=== PATIENT | male | born 1950 | race Two or more races ===

== ENCOUNTER 2016-07-27 17:07 | Emergency (ER) | payer BC, OTHER ==
[~2016-07-27] VITALS: Ht 182.9 cm; Wt 81.6 kg
[2016-07-27 17:10] VITALS: BP 160/70
== END 2016-07-27 18:03 | disposition home or self-care (01) ==
LOC: EDUNIT# 17:07 → ER 17:20
DX: S40.012A Contusion of left shoulder, initial encounter (principal); S20.212A Contusion of left front wall of thorax, initial encounter; V49.9XXA Car occupant (driver) (passenger) injured in unspecified traffic accident, initial encounter; Y93.89 Activity, other specified; Y99.8 Other external cause status; Y92.69 Other specified industrial and construction area as the place of occurrence of the external cause
CPT/HCPCS: 29105; 73000; 73030

== ENCOUNTER 2017-08-01 05:37 | Inpatient (IN) | payer BC, OTHER, MEDICARE ==
[~2017-08-01] VITALS: Ht 180.3 cm; Wt 81.5 kg
[2017-08-01 06:40] LABS: Basophils # (auto) 0 uL; Eosinophils # (auto) 0 uL; Eosinophils % (auto) 0.9 % (0.0-7.0); Hematocrit 39.2 % (41.0-53.0); Hemoglobin 13.5 g/dL (13.5-17.5); Lymphocytes # (auto) 1.3 uL; Lymphocytes % (auto) 37.3 % (10.0-50.0); Mean Corpuscular Hemoglobin 29.5 pg (28.0-32.0); Mean Corpuscular Hgb Conc. 34.6 g/dL (32.0-36.0); Mean Corpuscular Volume 85.3 fL (80.0-100.0); Monocytes # (auto) 0.1 uL; Monocytes % (auto) 4.3 % (0.0-12.0); Neutrophils % (auto) 56.5 % (37.0-80.0); Platelet Count (auto) 133 10^3/uL (140-450); Red Blood Cells 4.59 10^6/uL (4.5-5.90); Red Cell Distribution Width 14.6 % (11.8-14.3); White Blood Cell 3.5 10^3/uL (4.4-10.8)
[2017-08-01 07:01] LABS: Alanine Aminotransferase 27 U/L (16-61); Albumin 3.7 g/dL (3.4-5.0); Alkaline Phosphatase 145 U/L (45-117); Anion Gap 12 (5-15); Aspartate Aminotransferase 33 U/L (15-37); BUN/Creatinine Ratio 22.2; Bilirubin, Total 0.5 mg/dL (0.2-1.0); Blood Urea Nitrogen 16 mg/dL (7-18); Carbon Dioxide 23 mmol/L (21-32); Chloride 104 mmol/L (98-107); GFR African American 140 mL/min; GFR Non-African American 116 mL/min; Magnesium 2.1 mg/dL (1.6-2.6); Potassium 3.5 mmol/L (3.5-5.1); Sodium 139 mmol/L (136-145); Total Protein 6.6 g/dL (6.4-8.2)
[2017-08-01 07:19] LABS: Glucose 426 mg/dL (74-106)
[2017-08-01] MEDS ORDERED: SODIUM CHLORIDE 0.9% 1,000 ML IV ONE (07:29)
[2017-08-01] MEDS ORDERED: PANTOPRAZOLE 40 MG TAB PO ONE ×2 (07:30→13:30)
[2017-08-01] MEDS ORDERED: DONNATAL 5ml ORAL Elix (BELLADONNA ALK-PHENOBARB) PO ONE (07:30)
[2017-08-01] MEDS ORDERED: ALUM & MAG HYDROX-SIMETH LIQ(MAALOX) 30 ML PO ONE (07:30)
[2017-08-01 09:10] LABS: Urine Bacteria NONE SEEN /hpf (None Seen); Urine Blood Negative /uL (Negative); Urine WBC <1 /hpf (0 - 3)
[2017-08-01] MEDS ORDERED: InsuLIN REG 1unit/0.01ml Soln (100units/ml) IV ONE (10:15)
[2017-08-01] MEDS ORDERED: PROMETHAZINE HCL 25 MG/ML 1ML IV PRN (12:30)
[2017-08-01] MEDS ORDERED: DEXTROSE (50%) 50ML SYRG IV PRN (12:30)
[2017-08-01] MEDS ORDERED: MORPHINE SULFATE 10 MG/ML INJ 1ML SDV IV PRN (12:30)
[2017-08-01] MEDS ORDERED: NITROGLYCERIN 0.4 MG SL TAB SL PRN (12:30)
[2017-08-01] MEDS ORDERED: MORPHINE SULF INJ 2 MG/ML SYRINGE 1ML IV PRN (12:30)
[2017-08-01] MEDS ORDERED: MORPHINE SULFATE 4 MG/ML SYR/VIAL IV PRN (12:30)
[2017-08-01] MEDS ORDERED: chlordiazePOXIDE HCL 25 MG CAP PO PRN (12:30)
[2017-08-01] MEDS ORDERED: THIAMINE HCL 100 MG/ML 2ML VIAL IV ONE (12:30)
[2017-08-01] MEDS ORDERED: TEMAZEPAM 15 MG CAP PO PRN (12:30)
[2017-08-01] MEDS ORDERED: LORazepam 2MG/ML-1ML VIAL IV PRN (12:30)
[2017-08-01 13:22] LABS: INR 0.93 (0.9-1.15); Partial Thromboplastin Time 25.2 sec (22.64-33.71); Prothrombin Time 10.1 sec (9.37-12.3)
[2017-08-01 13:33] LABS: CRP High Sensitivity 0.04 mg/dL (< 0.3)
[2017-08-01] MEDS ORDERED: OFLOXACIN OTIC(EAR) 0.3 % DROP 5ML LEFT EAR ONE (13:45)
[2017-08-01] MEDS: SODIUM CHLORIDE 0.9% 1,000 ML IV SCH ×3 (14:06→22:18)
[2017-08-01] MEDS: METOPROLOL TARTRATE 25 MG TAB PO SCH ×2 (14:16→22:15)
[2017-08-01] MEDS: AMOXICILLIN/CLAVULAN 500 MG TAB PO SCH ×2 (14:17→23:35)
[2017-08-01] MEDS: NITROGLYCERIN 0.2MG/HR TOPICAL PATCH TD SCH (14:17)
[2017-08-01] MEDS: OFLOXACIN OTIC(EAR) 0.3 % DROP 5ML LEFT EAR SCH ×2 (14:25→22:00)
[2017-08-01 15:00] VITALS: BP 110/73
[2017-08-01] MEDS: ACCU-CHEK COMFORT CURVE STRIP VI SCH ×3 (16:13→23:49)
[2017-08-01] MEDS: InsuLIN REG 1unit/0.01ml Soln (100units/ml) SC SCH ×3 (16:14→23:49)
[2017-08-01 16:45] VITALS: BP 110/73
[2017-08-01 22:09] VITALS: BP 118/67
[2017-08-01] MEDS ORDERED: OSELTAMIVIR 30 MG CAP PO ONE (23:22)
[2017-08-01] MEDS ORDERED: AMOXICILLIN TRIHYDRATE 250 MG CAP PO ONE (23:24)
[2017-08-02] MEDS: InsuLIN REG 1unit/0.01ml Soln (100units/ml) SC SCH ×4 (04:00→16:00)
[2017-08-02] MEDS: ACCU-CHEK COMFORT CURVE STRIP VI SCH ×4 (04:02→16:00)
[2017-08-02 05:12] VITALS: BP 127/75
[2017-08-02] MEDS ORDERED: AMOXICILLIN TRIHYDRATE 250 MG CAP PO ONE (05:49)
[2017-08-02] MEDS: AMOXICILLIN/CLAVULAN 500 MG TAB PO SCH ×2 (05:54→14:34)
[2017-08-02] MEDS: SODIUM CHLORIDE 0.9% 1,000 ML IV SCH ×2 (05:54→15:03)
[2017-08-02 06:22] LABS: Urine Bacteria NONE SEEN /hpf (None Seen); Urine Blood Negative /uL (Negative); Urine Mucus FEW (None Seen); Urine Specific Gravity 1.025 (1.001-1.035); Urine WBC <1 /hpf (0 - 3)
[2017-08-02 06:30] LABS: Basophils # (auto) 0 uL; Basophils % (auto) 0.8 % (0.0-2.0); Eosinophils # (auto) 0 uL; Eosinophils % (auto) 0.7 % (0.0-7.0); Hematocrit 38.1 % (41.0-53.0); Hemoglobin 13.2 g/dL (13.5-17.5); Lymphocytes # (auto) 0.9 uL; Lymphocytes % (auto) 21.7 % (10.0-50.0); Mean Corpuscular Hemoglobin 29.6 pg (28.0-32.0); Mean Corpuscular Hgb Conc. 34.7 g/dL (32.0-36.0); Mean Corpuscular Volume 85.2 fL (80.0-100.0); Monocytes # (auto) 0.2 uL; Monocytes % (auto) 5.4 % (0.0-12.0); Neutrophils % (auto) 71.4 % (37.0-80.0); Nucleated Red Blood Cells % 0.1 %; Platelet Count (auto) 132 10^3/uL (140-450); Red Blood Cells 4.47 10^6/uL (4.5-5.90); Red Cell Distribution Width 14.8 % (11.8-14.3); White Blood Cell 4.2 10^3/uL (4.4-10.8)
[2017-08-02 06:42] LABS: Alcohol, Urine < 3.0 mg/dL (0-5); Amphetamine Screen, Urine NEGATIVE (NEGATIVE); Barbiturate Scree,Urine NEGATIVE (NEGATIVE); Benzodiazephine Screen, Urine NEGATIVE (NEGATIVE); Cannabinoid Screen, Urine NEGATIVE (NEGATIVE); Cocaine Screen, Urine NEGATIVE (NEGATIVE); Opiate Scree,Urine NEGATIVE (NEGATIVE); Phencyclidine Screen, Urine NEGATIVE (NEGATIVE)
[2017-08-02 07:00] LABS: Albumin 3.5 g/dL (3.4-5.0); Bilirubin, Total 0.7 mg/dL (0.2-1.0); Potassium 3.5 mmol/L (3.5-5.1); Total Protein 6.2 g/dL (6.4-8.2)
[2017-08-02 08:53] VITALS: BP 121/75
[2017-08-02] MEDS: METOPROLOL TARTRATE 25 MG TAB PO SCH (09:49)
[2017-08-02] MEDS: NITROGLYCERIN 0.2MG/HR TOPICAL PATCH TD SCH (09:52)
[2017-08-02] MEDS: OFLOXACIN OTIC(EAR) 0.3 % DROP 5ML LEFT EAR SCH (09:53)
[2017-08-02] MEDS ORDERED: PANTOPRAZOLE 40 MG TAB PO SCH ×2 (10:00→22:00)
[2017-08-02] MEDS ORDERED: THIAMINE HCL 100 MG/ML 2ML VIAL IV SCH (10:00)
[2017-08-02 13:05] VITALS: BP 124/72
[2017-08-02 14:29] VITALS: BP 124/72
[2017-08-02 16:49] VITALS: BP 124/72
[2017-08-02 16:59] VITALS: BP 127/80
== END 2017-08-02 16:49 | disposition home or self-care (01) | DRG 637 ==
LOC: EDBD 05:37 → ER 05:46 → TELE 05:47 → TELE-WESTW 15:12
PROVIDERS: ADMIT Internal Medicine; ATTEND Internal Medicine
DX: E11.65 Type 2 diabetes mellitus with hyperglycemia (principal); K85.20 Alcohol induced acute pancreatitis without necrosis or infection; D69.6 Thrombocytopenia, unspecified; I11.0 Hypertensive heart disease with heart failure; I50.9 Heart failure, unspecified; K29.20 Alcoholic gastritis without bleeding; E11.42 Type 2 diabetes mellitus with diabetic polyneuropathy; E78.5 Hyperlipidemia, unspecified; F32.9 Major depressive disorder, single episode, unspecified; F41.9 Anxiety disorder, unspecified; G47.00 Insomnia, unspecified; N20.0 Calculus of kidney; D72.819 Decreased white blood cell count, unspecified; H66.92 Otitis media, unspecified, left ear; I25.10 Atherosclerotic heart disease of native coronary artery without angina pectoris; I25.2 Old myocardial infarction; Z85.820 Personal history of malignant melanoma of skin; Z90.49 Acquired absence of other specified parts of digestive tract
CPT/HCPCS: 36415; 71045; 74176; 80053; 80061; 80307; 81001; 82150; 82270; 82550; 82962; 83036; 83690; 83735; 84484; 85025; 85379; 85610; 85652; 85730; 86141; 93005; 96361; 96374; 96375; G9035; J1815